=== PATIENT | male | born 2000 | race Caucasian/White ===

== ENCOUNTER 2021-02-23 23:06 | Emergency (ER) | payer SELFPAY ==
[~2021-02-23] VITALS: Ht 180.3 cm; Wt 85.0 kg
--- NOTE | 2021-02-23 23:12 | ED Dyspnea ---
General Stated Complaint: TROUBLE BREATHING History of Present Illness Date Seen by Provider: Feb 23, 2021 Time Seen by Provider: 23:12 Initial Comments 20-year-old male presents with a feeling of having some trouble breathing. Patient feels like he does have a hard time getting his breath. Patient reports he smoked in the past and stopped. Patient reports his symptoms started last night and is feels little bit worse this evening. Patient idenies any chest pain. Denies any fevers or chills. Allergies and Home Medications Allergies Coded Allergies: No Allergy Information Available (Unverified , 02/23/21) unknown Home Medications Albuterol Sulfate 1 Puff Puff, 2 PUFF INH Q6H PRN for SHORTNESS OF BREATH 1 PUFF = 90 MCG Prescribed by: ED RIVERA on 02/24/21 0033 Patient Home Medication List Home Medication List Reviewed: Yes Review of Systems Review of Systems Constitutional: No chills, No fever Respiratory: short of breath Cardiovascular: No chest pain, No palpitations Gastrointestinal: No abdominal pain, No nausea, No vomiting Genitourinary: no symptoms reported Musculoskeletal: no symptoms reported Skin: no symptoms reported Psychiatric/Neurological: No Symptoms Reported Endocrine: No Symptoms Reported Hematologic/Lymphatic: No Symptoms Reported Past Afxeqxz-Ezyzzl-Wylnff Hx Past Med/Social Hx: Reviewed Nursing Past Med/Soc Hx Physical Exam Vital Signs Vital Signs - First Documented 02/23/21 02/24/21 23:10 00:43 Temp 37.7 Pulse 120 Resp 18 B/P (MAP) 185/77 Pulse Ox 96 Capillary Refill : Height, Weight, BMI Height: '" Weight: lbs. oz. 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 as Tested Skin: Normal Color, Warm/Dry Progress/Results/Core Measures Results/Orders Lab Results Laboratory Tests Test 02/23/21 23:20 Range/Units White Blood Count 14.7 H 4.3-11.0 10^3/uL Red Blood Count 5.57 4.35-5.85 10^6/uL Hemoglobin 16.8 13.3-17.7 G/DL Hematocrit 47 40-54 % Mean Corpuscular Volume 85 80-99 FL Mean Corpuscular Hemoglobin 30 25-34 PG Mean Corpuscular Hemoglobin Concent 36 32-36 G/DL Red Cell Distribution Width 12.2 10.0-14.5 % Platelet Count 264 130-400 10^3/uL Mean Platelet Volume 9.9 7.4-10.4 FL Immature Granulocyte % (Auto) 0 % Neutrophils (%) (Auto) 52 42-75 % Lymphocytes (%) (Auto) 32 12-44 % Monocytes (%) (Auto) 9 0-12 % Eosinophils (%) (Auto) 6 0-10 % Basophils (%) (Auto) 1 0-10 % Neutrophils # (Auto) 7.7 1.8-7.8 X 10^3 Lymphocytes # (Auto) 4.6 H 1.0-4.0 X 10^3 Monocytes # (Auto) 1.4 H 0.0-1.0 X 10^3 Eosinophils # (Auto) 0.9 H 0.0-0.3 10^3/uL Basophils # (Auto) 0.1 0.0-0.1 10^3/uL Immature Granulocyte # (Auto) 0.0 0.0-0.1 10^3/uL Neutrophils % (Manual) 43 % Lymphocytes % (Manual) 33 % Monocytes % (Manual) 9 % Eosinophils % (Manual) 15 % Sodium Level 141 135-145 MMOL/L Potassium Level 3.6 3.6-5.0 MMOL/L Chloride Level 106 98-107 MMOL/L Carbon Dioxide Level 23 21-32 MMOL/L Anion Gap 12 5-14 MMOL/L Blood Urea Nitrogen 10 7-18 MG/DL Creatinine 1.19 0.60-1.30 MG/DL Estimat Glomerular Filtration Rate > 60 BUN/Creatinine Ratio 8 Glucose Level 133 H 70-105 MG/DL Calcium Level 9.7 8.5-10.1 MG/DL Corrected Calcium 8.5-10.1 MG/DL Magnesium Level 2.1 1.6-2.4 MG/DL Total Bilirubin 0.7 0.1-1.0 MG/DL Aspartate Amino Transf (AST/SGOT) 23 5-34 U/L Alanine Aminotransferase (ALT/SGPT) 33 0-55 U/L Alkaline Phosphatase 101 40-136 U/L Troponin I < 0.30 <0.30 NG/ML C-Reactive Protein 2.54 H <0.50 MG/DL Pro-B-Type Natriuretic Peptide 58.1 <75.0 PG/ML Total Protein 7.7 6.4-8.2 GM/DL Albumin 4.8 H 3.2-4.5 GM/DL My Orders Orders - ED RIVERA L DO Chest Pa/Lat (2 View) (02/23/21 23:15) Cbc With Automated Diff (02/23/21 23:15) Comprehensive Metabolic Panel (02/23/21 23:15) Magnesium (02/23/21 23:15) Probnp Fs (02/23/21 23:15) Crp Fs (02/23/21 23:15) Troponin I Fs (02/23/21 23:15) Ekg Tracing (02/23/21 23:15) Monitor-Rhythm Ecg Trace Only (02/23/21 23:15) Lactated Ringers (Lr 1000 Ml Iv Solution (02/23/21 23:20) Manual Differential (02/23/21 23:20) Albuterol/Ipra Inhalation Soln (Duoneb I (02/24/21 00:00) Svn Small Volume Nebulizer (02/24/21 00:00) Medications Given in ED Current Medications Medications Dose Ordered Sig/Jose Roberto Route Start Time Stop Time Status Last Admin Dose Admin Albuterol/ Ipratropium 3 ml ONCE ONCE INH 02/24/21 00:00 02/24/21 00:01 DC 02/24/21 00:09 3 ML Vital Signs/I&O 02/23/21 02/24/21 23:10 00:43 Temp 37.7 Pulse 120 102 Resp 18 17 B/P (MAP) 185/77 Pulse Ox 96 Progress Progress Note : Progress Note Patient with slight elevation white count and CRP. Negative chest x-ray. Patient fell a lot better following DuoNeb. Will prescribe him an albuterol inhaler. Patient with likely a viral bronchitis. Patient stable and discharged Initial ECG Impression Date: Feb 23, 2021 Initial ECG Impression Time: 23:29 Initial ECG Rate: 100 Initial ECG Rhythm: S.Tach Initial ECG Impression: Normal Diagnostic Imaging Diagonstic Imaging: Xray Plain Films/CT/US/NM/MRI: chest Comments No infiltrate noted Departure Impression Primary Impression: Bronchitis Disposition: HOME, SELF-CARE Condition: Stable Departure-Patient Inst. Referrals: NO,LOCAL PHYSICIAN (PCP) Primary Care Physician Patient Instructions: Acute Bronchitis, How to Use Your Metered Dose Inhaler (Adults) Add. Discharge Instructions: Follow-up with your primary care provider in 3 to 4 days for recheck of today's symptoms Return to the ER if you develop increasing shortness of breath or any other concern Scripts Albuterol Sulfate (VENTOLIN HFA) 1 Puff Puff 2 PUFF INH Q6H PRN for SHORTNESS OF BREATH, #1 INHALER 1 PUFF = 90 MCG Prov: ED RIVERA DO 02/24/21 ED RIVERA DO Feb 23, 2021 23:12
[2021-02-23] MEDS ORDERED: LACTATED RINGERS 1,000 ML IV STA (23:20)
[2021-02-23 23:35] LABS: BASOPHILS # (AUTO) 0.1 10^3/uL (0.0-0.1); BASOPHILS % (AUTO) 1 % (0-10); EOSINOPHILS # (AUTO) 0.9 10^3/uL (0.0-0.3); EOSINOPHILS % (AUTO) 6 % (0-10); HEMATOCRIT 47 % (40-54); HEMOGLOBIN 16.8 G/DL (13.3-17.7); LYMPHOCYTES # (AUTO) 4.6 X 10^3 (1.0-4.0); LYMPHOCYTES % (AUTO) 32 % (12-44); MEAN CORPUSCULAR HEMOGLOBIN 30 PG (25-34); MEAN CORPUSCULAR HGB CONC 36 G/DL (32-36); MEAN CORPUSCULAR VOLUME 85 FL (80-99); MEAN PLATELET VOLUME 9.9 FL (7.4-10.4); MONOCYTES # (AUTO) 1.4 X 10^3 (0.0-1.0); MONOCYTES % (AUTO) 9 % (0-12); NEUTROPHILS # (AUTO) 7.7 X 10^3 (1.8-7.8); NEUTROPHILS % (AUTO) 52 % (42-75); PLATELET COUNT 264 10^3/uL (130-400); WHITE BLOOD COUNT 14.7 10^3/uL (4.3-11.0)
[2021-02-23 23:42] LABS: EOSINOPHILS % (MANUAL) 15 %; LYMPHOCYTES % (MANUAL) 33 %; MONOCYTES % (MANUAL) 9 %; NEUTROPHILS % (MANUAL) 43 %
[2021-02-23 23:48] LABS: BUN/CREATININE RATIO 8; CALCIUM 9.7 MG/DL (8.5-10.1); CARBON DIOXIDE 23 MMOL/L (21-32); CHLORIDE 106 MMOL/L (98-107); CREATININE SERUM 1.19 MG/DL (0.60-1.30); GFR ESTIMATED > 60; GLUCOSE 133 MG/DL (70-105); MAGNESIUM 2.1 MG/DL (1.6-2.4); POTASSIUM 3.6 MMOL/L (3.6-5.0); SODIUM 141 MMOL/L (135-145)
[2021-02-23 23:49] LABS: ALANINE AMINOTRANSFERASE 33 U/L (0-55); ALBUMIN 4.8 GM/DL (3.2-4.5); ALKALINE PHOSPHATASE 101 U/L (40-136); BILIRUBIN,TOTAL 0.7 MG/DL (0.1-1.0); TOTAL PROTEIN 7.7 GM/DL (6.4-8.2)
[2021-02-24] MEDS ORDERED: RT-ALBUTEROL/IPRATROPIUM 3 ML (DUONEB) VIAL INH ONE
[2021-02-24] MEDS ORDERED: RT-ALBUINH INH (00:33)
--- NOTE | 2021-02-24 07:28 | Diagnostic Imaging Report ---
EXAMINATION: CHEST (PA AND LATERAL) CLINICAL INDICATION: 20-year-old male, shortness of breath. COMPARISON: None. FINDINGS: Heart size and mediastinal contours are unremarkable. There is no identified pneumothorax. There is no pleural effusion. There is no focal airspace consolidation. IMPRESSION: No identified acute cardiopulmonary abnormality. Dictated by: Dictated on workstation # [id number]
== END 2021-02-24 00:45 | disposition home or self-care (01) ==
LOC: ER FS 23:11
DX: J40 Bronchitis, not specified as acute or chronic (principal)
CPT/HCPCS: 36415; 71046; 80053; 83735; 83880; 84484; 85007; 85027; 86141; 93005; 93041; 94640